=== PATIENT | male | born 1960 | race Caucasian/White ===

== ENCOUNTER 2017-06-24 19:27 | Emergency (ER) | payer SELFPAY ==
--- NOTE | 2017-06-24 20:46 | Emergency Department Record ---
History of Present Illness - General Chief complaint: Lower Extremity Pain Stated complaint: LEFT LEG PAIN Time Seen by Provider: 06/24/17 20:46 Source: Patient Mode of Arrival: Ambulatory Limitations: No limitations - History of Present Illness Initial comments: The patient is here due to L leg pain for the last 3 hours. He states he jumped down from a height of 18" and felt immediate pain in his L calf. He denies any ankle or foot pain or any other injury. Now the leg is quite painful with walking. He denies any other issue. The patient did not hear a "pop" but it is very loud where he works. MD Complaint: Extremity pain Onset/Timin -: Hour(s) Location: Left, Lower Leg History of Same: No Severity scale (1-10): 4 Quality: Other Consistency: Constant Improves with: Rest Worsens with: Walking, Weight bearing Associated Symptoms: Denies other symptoms - Related Data Home Medications Medication Instructions Recorded Confirmed Last Taken Cholecalciferol (Vitamin D3) 1,000 unit PO DAILY 06/24/17 06/24/17 06/24/17 [Vitamin D3] Metoprolol Succinate [Toprol Xl] 100 mg PO DAILY 06/24/17 06/24/17 06/24/17 Previous Rx's Medication Instructions Recorded Naproxen [Naprosyn] 500 mg PO BID #14 tablet. 06/24/17 Allergies Allergy/AdvReac Type Severity Reaction Status Date / Time alcohol Allergy passed out Verified 06/24/17 20:34 and had convulsions povidone-iodine Allergy HIVES Verified 06/24/17 20:34 [From Betadine] soap [From Betadine] Allergy HIVES Verified 06/24/17 20:34 sulfamethoxazole Allergy HIVES Verified 06/24/17 20:34 [From Septra] trimethoprim [From Septra] Allergy HIVES Verified 06/24/17 20:34 Travel Screening - Travel/Exposure Within Last 30 Days Have you traveled within the last 30 days?: No - Travel Symptoms Symptom Screening: None Review of Systems Constitutional: Denies: Chills, Fever Eyes: Denies: Eye discharge ENT: Denies: Congestion Respiratory: Denies: Cough, Dyspnea Past Medical History - SOCIAL HISTORY Smoking Status: Never smoker - RESPIRATORY Hx Respiratory Disorders: No - CARDIOVASCULAR Hx Cardio Disorders: Yes Hx Hypertension: Yes - NEURO Hx Neuro Disorders: No - GI Hx GI Disorders: No - Hx Genitourinary Disorders: No - ENDOCRINE Hx Endocrine Disorders: No - MUSCULOSKELETAL Hx Musculoskeletal Disorders: No - PSYCH Hx Psych Problems: No - HEMATOLOGY/ONCOLOGY Hx Hematology/Oncology Disorders: No Family Medical History Any Significant Family History?: Yes Hx Alcohol Use: Father Hx Heart Disease: Brother/Sister Physical Exam - General General Appearance: Alert, Oriented x3, Cooperative, No acute distress - Head Head exam: Atraumatic, Normocephalic, Normal inspection - Eye Eye exam: Normal appearance, PERRL - Extremities Extremities exam: Normal inspection, Calf tenderness (L only.), Full ROM (There is no knee or ankle pain or tenderness.), Normal capillary refill, Tenderness ( The L mid calf is very tender with trace swelling present. ), Other (The L DP pulse is 2+ and strong. The achilles tendons are intact bilaterally.). negative : Joint swelling - Neurological Neurological exam: Abnormal gait, Alert. negative: Motor sensory deficit, Normal gait Course Vital Signs 06/24/17 20:12 Temperature 99.0 F Pulse Rate [ 79 Pulse Ox Probe] Respiratory 18 Rate Blood Pressure 158/93 [Left Arm] Pulse Ox 96 - Reevaluation(s) Reevaluation #1: The patient is doing well. I explained to him that I believe that he has a plantaris muscle rupture and that the calf will most likely be painful for a week or two. He is to be off work today and F/U at his work Occ. Health provider tomorrow. 06/24/17 21:39 Medical Decision Making - Data Complexity MDM Data: X-Ray Ordered and/or Reviewed - Radiology Data Radiology results: Report reviewed (L lower leg: Neg per Rad.) Disposition Disposition: Discharge Clinical Impression: Rupture of plantaris tendon Qualifiers: Encounter type: initial encounter Laterality: left Qualified Code(s): S96.812A - Strain of other specified muscles and tendons at ankle and foot level, left foot, initial encounter Disposition: Home, Self-Care Condition: (1) Good Instructions: Muscle Cramp (ED) Additional Instructions: Please use the avery wrap during the day and ice and elevate the leg for 2 days. 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 Use Naprosyn for pain and return to the ER if worse. Prescriptions: Naproxen [Naprosyn] 500 mg PO BID #14 tablet.dr Forms: Patient Portal Access Time of Disposition: 21:41 Quality - Quality Measures Quality Measures: N/A - Blood Pressure Screening View Details: Yes Does Patient Have Any of the Following: No Blood Pressure Classification: Hypertensive Reading Systolic Measurement: 158 Diastolic Measurement: 93 Screening for High Blood Pressure: < Pre-Hypertensive BP, F/U Documented > [ [id number]] Pre-Hypertensive Follow-up Interventions: Referral to alternative/primary care provider.
[2017-06-24] MEDS: IBUPROFEN 600 MG TABLET PO ONE (21:00)
[2017-06-24 21:52] LABS: AMPHETAMINE SCREEN URINE NOT DETECTED; BARBITURATE SCREEN URINE NOT DETECTED; BENZODIAZEPINE SCREEN URINE NOT DETECTED; COCAINE SCREEN URINE NOT DETECTED; METHADONE SCREEN URINE NOT DETECTED; METHAMPHETAMINE SCREEN NOT DETECTED; OPIATE SCREEN URINE NOT DETECTED; OXYCODONE SCREEN URINE NOT DETECTED; PHENCYCLIDINE SCREEN URINE NOT DETECTED; PROPOXYPHENE SCREEN URINE NOT DETECTED; THC SCREEN URINE NOT DETECTED; TRICYCLIC ANTIDEPRESSANT SCRN NOT DETECTED
--- NOTE | 2017-06-26 23:42 | RADIOLOGY REPORT ---
EXAM: LOWER LEG, LEFT HISTORY: PAIN POST INJURY. TECHNIQUE: AP and lateral views of the left tibia and fibula are obtained. COMPARISON: None. ENCOUNTER: Initial. FINDINGS: There is normal bone mineralization. No definite acute fracture nor dislocation is seen. The articular relations are maintained. There is calcific density projecting near the skin surface at the posteromedial aspect of the mid to distal aspect of the lower leg. IMPRESSION: 1. NO ACUTE FRACTURE NOR DISLOCATION IDENTIFIED, THOUGH THE ANTERIOR MARGINS OF THE PROXIMAL TO THE MID PORTIONS OF THE SHAFT OF THE FIBULA ARE NOT WELL DELINEATED ON THE LATERAL VIEW. 2. BENIGN-APPEARING CALCIFIC DENSITY PERIPHERALLY IN THE POSTEROMEDIAL SOFT TISSUES OF THE DISTAL LOWER LEG. JOB NUMBER: [id number] MTDD
== END 2017-06-24 21:49 | disposition home or self-care (01) ==
LOC: ER 19:27
DX: S96.812A Strain of other specified muscles and tendons at ankle and foot level, left foot, initial encounter (principal); W22.8XXA Striking against or struck by other objects, initial encounter; Y92.63 Factory as the place of occurrence of the external cause; Y99.0 Civilian activity done for income or pay
CPT/HCPCS: 80305; 99283